=== PATIENT | female | born 1955 | race Caucasian/White ===

== ENCOUNTER 2020-01-26 19:04 | Observation (INO) | payer MEDICARE ==
[~2020-01-26] VITALS: Ht 167.6 cm; Wt 70.3 kg
[~2020-01-26 19:04] MED LIST: HYDR-4068 PO; PARO40TA PO
[2020-01-26 20:02] LABS: APPEARANCE,URINE CLOUDY (CLEAR); BILIRUBIN,URINE SMALL (NEGATIVE); COLOR,URINE YELLOW (YELLOW); GLUCOSE, URINE (UA) NEGATIVE (NEGATIVE); KETONES,URINE NEGATIVE (NEGATIVE); LEUKOCYTE ESTERASE ,URINE NEGATIVE (NEGATIVE); NITRATE,URINE NEGATIVE (NEGATIVE); OCCULT BLOOD,URINE NEGATIVE (NEGATIVE); PROTEIN,URINE NEGATIVE (NEGATIVE)
[2020-01-26 20:11] LABS: BASOPHILS % (AUTO) 0.2 % (0.0-5.0); EOSINOPHILS % (AUTO) 0.5 % (0.0-8.0); LYMPHOCYTES % (AUTO) 13.5 % (21.0-51.0); MEAN CORPUSCULAR HEMOGLOBIN 30.8 pg (27.0-33.0); MEAN CORPUSCULAR HGB CONC 33.1 g/dL (32.0-36.0); MEAN CORPUSCULAR VOLUME 92.9 fL (79-99); MONOCYTES % (AUTO) 3.8 % (3.0-13.0); NEUTROPHILS % (AUTO) 81.7 % (40.0-77.0); PLATELET COUNT (AUTO) 331 K/uL (130-400); RED BLOOD CELL COUNT(AUTO) 4.52 MIL/uL (4.00-5.50); RED CELL DISTRIBUTION WIDTH 13.2 % (11.0-15.5); WHITE BLOOD COUNT (AUTO) 19.1 K/uL (4.8-10.8)
[2020-01-26 20:30] LABS: CREATININE 1.2 mg/dL (0.5-1.5); POTASSIUM 4.8 mmol/L (3.5-5.1)
[2020-01-26 20:38] LABS: BILIRUBIN,TOTAL 0.3 mg/dL (0.2-1.0); TOTAL PROTEIN, SERUM 8.4 g/dL (6.0-8.3)
[2020-01-26 21:00] LABS: AMORPHOUS SEDIMENT,UR Moderate /LPF (None Seen); RBC,URINE 0-1 /HPF (0-1); SQUAMOUS EPITHELIAL CELL,UR Rare /HPF (0-2); WBC,URINE 0-1 /HPF (0-1)
[2020-01-26 21:01] LABS: BACTERIA,URINE Few /HPF (None Seen)
[2020-01-26] MEDS ORDERED: LEVOFLOXACIN 500 MG TABLET ONE (21:14)
[2020-01-26] MEDS ORDERED: METRONIDAZOLE 500MG/100ML BAG 100 ML ONE (21:15)
[2020-01-26] MEDS ORDERED: KETOROLAC TROMETHAMINE 15MG/ML ONE (21:23)
[2020-01-26] MEDS: SODIUM CHLORIDE 0.9% 1000ML 1,000 ML IV SCH (22:30)
[2020-01-27 01:57] VITALS: BP 117/69
[2020-01-27 05:22] LABS: HEMATOCRIT 36.7 % (36-48); MEAN CORPUSCULAR HEMOGLOBIN 30.6 pg (27.0-33.0); MEAN CORPUSCULAR HGB CONC 32.7 g/dL (32.0-36.0); MEAN CORPUSCULAR VOLUME 93.6 fL (79-99); RED BLOOD CELL COUNT(AUTO) 3.92 MIL/uL (4.00-5.50); RED CELL DISTRIBUTION WIDTH 13.3 % (11.0-15.5); WHITE BLOOD COUNT (AUTO) 14.1 K/uL (4.8-10.8)
[2020-01-27 05:47] LABS: CREATININE 1.5 mg/dL (0.5-1.5); POTASSIUM 4.4 mmol/L (3.5-5.1)
[2020-01-27] MEDS: METRONIDAZOLE 500MG/100ML BAG 100 ML IVPB SCH ×3 (05:59→22:11)
[2020-01-27 08:00] VITALS: BP 105/63
[2020-01-27] MEDS: SODIUM CHLORIDE 0.9% 1000ML 1,000 ML IV SCH (08:30)
[2020-01-27] MEDS ORDERED: ONDANSETRON HCL 4 MG/2 ML VIAL IVP PRN (08:30)
[2020-01-27] MEDS: MORPHINE SULFATE 2 MG/ML 1ML SYG IVP PRN ×3 (09:57→20:15)
[2020-01-27] MEDS: FAMOTIDINE 20MG TAB 20 MG TAB PO SCH (09:57)
[2020-01-27 11:57] VITALS: BP 120/75
[2020-01-27 16:00] VITALS: BP 115/70
[2020-01-27 20:00] VITALS: BP 109/64
[2020-01-27] MEDS ORDERED: ACETAMINOPHEN 325 MG TAB ONE (22:10)
[2020-01-28] VITALS: BP 118/59
[2020-01-28 04:00] VITALS: BP 147/77
[2020-01-28] MEDS: SODIUM CHLORIDE 0.9% 1000ML 1,000 ML IV SCH (05:39)
[2020-01-28] MEDS: METRONIDAZOLE 500MG/100ML BAG 100 ML IVPB SCH ×2 (05:39→15:32)
[2020-01-28 08:00] VITALS: BP 131/76
[2020-01-28] MEDS: FAMOTIDINE 20MG TAB 20 MG TAB PO SCH (10:38)
[2020-01-28] MEDS: ACETAMINOPHEN 325 MG TAB PO PRN ×2 (10:41→13:16)
[2020-01-28 12:00] VITALS: BP 125/73
--- NOTE | 2020-01-28 14:38 | NUR ---
MET W PATIENT FOR DC PLANNING. PATIENT STATES RETIRED, INDEPENDENT AND ACTIVE, NO DME, NO HH, NO PROVIDER, LIVES W [facility] WHO WILL PROVIDE TRANSPORT, STATES FOLLOWS W DR. ELMORE, LAST CLINIC VISIT ABOUT 2 MONTHS AGO. DCP IS HOME, NO DC NEEDS ANTICIPATED Addendum: 01/28/20 at 1440 by LAILA FAIRBANKS RN CM Amended: Links added.
[2020-01-28 16:00] VITALS: BP 135/77
--- NOTE | 2020-01-28 19:21 | NUR ---
D/C PT LEFT VIA WHEELCHAIR IN PVT CAR, [facility] AND [facility] CALL TO [facility] IN [facility]. PT V.S STABLE NO COMPLICATIONS, TOLERATED DINNER. PT WILL F/U WITH PCP 2-3 DAYS. NO ABDOMINAL PAIN UPON D.C.
[2020-01-28] MEDS ORDERED: LEVOFLOXACIN 750 MG/D5W 150 ML 150 ML IV SCH (21:00)
== END 2020-01-28 19:30 | disposition home or self-care (01) ==
LOC: EDH 19:04 → EDHIP 21:18 → 3AH 01-27 01:57
PROVIDERS: ADMIT Internal Medicine; ATTEND Internal Medicine
DX: K57.32 Diverticulitis of large intestine without perforation or abscess without bleeding (principal); I10 Essential (primary) hypertension; G43.909 Migraine, unspecified, not intractable, without status migrainosus; Z90.710 Acquired absence of both cervix and uterus; Z88.8 Allergy status to other drugs, medicaments and biological substances
CPT/HCPCS: G0378 ×78; 36415; 71045; 74176; 80048; 80053; 81001; 82150; 82550; 83690; 84484; 85025; 85027; 87040; 93005; 96361; 96365; 96366; 96375; 96376; J1885; J1956; J3490; J7030

== ENCOUNTER 2020-08-12 05:40 | Emergency (ER) | payer MEDICARE ==
[2020-08-12 06:17] LABS: APPEARANCE,URINE CLEAR (CLEAR); BILIRUBIN,URINE NEGATIVE (NEGATIVE); COLOR,URINE YELLOW (YELLOW); GLUCOSE, URINE (UA) NEGATIVE (NEGATIVE); KETONES,URINE 5 mg/dL (NEGATIVE); LEUKOCYTE ESTERASE ,URINE NEGATIVE (NEGATIVE); NITRATE,URINE NEGATIVE (NEGATIVE); OCCULT BLOOD,URINE NEGATIVE (NEGATIVE); PH,URINE 5.5 (5.0-8.0); PROTEIN,URINE NEGATIVE (NEGATIVE); UROBILINOGEN,URINE 0.2 mg/dL (0.2-1.0)
[2020-08-12 06:34] LABS: BASOPHILS % (AUTO) 0.3 % (0.0-5.0); EOSINOPHILS % (AUTO) 1.9 % (0.0-8.0); HEMATOCRIT 43.9 % (36-48); LYMPHOCYTES % (AUTO) 27.3 % (21.0-51.0); MEAN CORPUSCULAR HEMOGLOBIN 31.3 pg (27.0-33.0); MEAN CORPUSCULAR HGB CONC 33.5 g/dL (32.0-36.0); MEAN CORPUSCULAR VOLUME 93.4 fL (79-99); MONOCYTES % (AUTO) 6.3 % (3.0-13.0); NEUTROPHILS % (AUTO) 63.9 % (40.0-77.0); PLATELET COUNT (AUTO) 358 K/uL (130-400); RED CELL DISTRIBUTION WIDTH 13.5 % (11.0-15.5); WHITE BLOOD COUNT (AUTO) 15.6 K/uL (4.8-10.8)
[2020-08-12 07:20] LABS: BACTERIA,URINE Rare /HPF (None Seen); MUCUS,URINE Few LPF (None Seen); RBC,URINE 0-1 /HPF (0-1); SQUAMOUS EPITHELIAL CELL,UR Rare /HPF (0-2)
[2020-08-12 07:21] LABS: CALCIUM OXALATE CRYSTALS,UR Moderate /LPF (None Seen)
[2020-08-12 07:29] LABS: ALBUMIN 3.9 g/dL (3.5-5.0); BILIRUBIN,TOTAL 0.2 mg/dL (0.2-1.0); CREATININE 1.3 mg/dL (0.5-1.5); POTASSIUM 4.7 mmol/L (3.5-5.1); TOTAL PROTEIN, SERUM 7.7 g/dL (6.0-8.3)
[2020-08-12] MEDS ORDERED: SODIUM CHLORIDE 0.9% 1000ML 1,000 ML IV ONE ×2 (08:13)
[2020-08-12] MEDS ORDERED: SODIUM CHLORIDE 0.9% 500ML 500 ML IV ONE (08:13)
[2020-08-12] MEDS ORDERED: FAMOTIDINE/PF 20 MG/2 ML VIAL IV ONE (08:17)
[2020-08-12] MEDS ORDERED: SUCRALFATE 1 GM TABLET ONE (08:17)
[2020-08-12] MEDS ORDERED: ONDANSETRON HCL 4 MG/2 ML VIAL ONE (08:17)
[2020-08-12] MEDS ORDERED: IOHEXOL-350 75 ML VIAL IV ONE (09:37)
== END 2020-08-12 10:55 | disposition home or self-care (01) ==
LOC: EDH 05:40
DX: R10.13 Epigastric pain (principal); D72.829 Elevated white blood cell count, unspecified; R10.11 Right upper quadrant pain; I10 Essential (primary) hypertension; G43.909 Migraine, unspecified, not intractable, without status migrainosus; Z88.8 Allergy status to other drugs, medicaments and biological substances
CPT/HCPCS: 36415; 74177; 76705; 80053; 81001; 82150; 83690; 84484; 85025; 93005; 96374; 96375; 99285; J2405; J3490; J7040; Q9967; J7030

== ENCOUNTER 2021-01-16 21:55 | Emergency (ER) | payer MEDICARE ==
[~2021-01-16] VITALS: Ht 167.6 cm; Wt 71.2 kg
[2021-01-16] MEDS ORDERED: SODIUM CHLORIDE 0.9% 1000ML 1,000 ML IV SCH (22:30)
[2021-01-16] MEDS ORDERED: ONDANSETRON HCL 4 MG/2 ML VIAL IVP ONE (22:30)
[2021-01-16 22:40] LABS: APPEARANCE,URINE Clear (CLEAR); BILIRUBIN,URINE Negative (NEGATIVE); COLOR,URINE Yellow (YELLOW); GLUCOSE, URINE (UA) Negative (NEGATIVE); KETONES,URINE Negative (NEGATIVE); LEUKOCYTE ESTERASE ,URINE Trace (NEGATIVE); NITRATE,URINE Negative (NEGATIVE); OCCULT BLOOD,URINE Small (NEGATIVE); PROTEIN,URINE Negative (NEGATIVE); UROBILINOGEN,URINE 0.2 mg/dL (0.2-1.0)
[2021-01-16 22:50] LABS: BACTERIA,URINE Rare /HPF (None Seen); RBC,URINE 0-1 /HPF (0-1); SQUAMOUS EPITHELIAL CELL,UR 0-2 /HPF (0-2)
[2021-01-16 22:51] LABS: BASOPHILS % (AUTO) 0.4 % (0.0-5.0); EOSINOPHILS % (AUTO) 1.9 % (0.0-8.0); HEMATOCRIT 37.3 % (36-48); LYMPHOCYTES % (AUTO) 16.7 % (21.0-51.0); MEAN CORPUSCULAR HEMOGLOBIN 30.9 pg (27.0-33.0); MEAN CORPUSCULAR HGB CONC 33.5 g/dL (32.0-36.0); MEAN CORPUSCULAR VOLUME 92.3 fL (79-99); MONOCYTES % (AUTO) 6.8 % (3.0-13.0); NEUTROPHILS % (AUTO) 73.8 % (40.0-77.0); PLATELET COUNT (AUTO) 283 K/uL (130-400); RED BLOOD CELL COUNT(AUTO) 4.04 MIL/uL (4.00-5.50); RED CELL DISTRIBUTION WIDTH 13.6 % (11.0-15.5); WHITE BLOOD COUNT (AUTO) 13.9 K/uL (4.8-10.8)
[2021-01-16 23:00] VITALS: BP 139/75
[2021-01-16 23:03] LABS: CREATININE 1.2 mg/dL (0.5-1.5); POTASSIUM 4.5 mmol/L (3.5-5.1)
[2021-01-16 23:13] LABS: ALBUMIN 3.6 g/dL (3.5-5.0); BILIRUBIN,TOTAL 0.4 mg/dL (0.2-1.0); TOTAL PROTEIN, SERUM 7.4 g/dL (6.0-8.3)
[2021-01-16] MEDS ORDERED: SODIUM CHLORIDE 0.9% 1000ML 1,000 ML IV ONE (23:45)
[2021-01-16] MEDS ORDERED: ONDANSETRON HCL 4 MG/2 ML VIAL ONE (23:45)
[2021-01-17] MEDS ORDERED: ONDA4TAB10 PO (00:43)
[2021-01-17] MEDS ORDERED: DICY20TA2 PO (00:43)
[2021-01-17 00:45] VITALS: BP 141/90
== END 2021-01-17 00:53 | disposition home or self-care (01) ==
LOC: EDH 21:55
DX: E86.0 Dehydration (principal); R10.84 Generalized abdominal pain; R11.0 Nausea; R50.9 Fever, unspecified; Z88.8 Allergy status to other drugs, medicaments and biological substances; Z79.899 Other long term (current) drug therapy
CPT/HCPCS: 36415; 74176; 80053; 81001; 83690; 84484; 85025; 93005; 96374; 99285; J2405; J7030

== ENCOUNTER 2023-01-06 16:15 | Emergency (ER) | payer MEDICARE ==
[~2023-01-06] VITALS: Ht 167.6 cm; Wt 70.3 kg
[~2023-01-06 16:15] MED LIST changes: +DICY20TA2 PO; +ONDA4TAB10 PO; +PARO-160 PO; -PARO40TA PO
[2023-01-06 16:50] VITALS: BP 165/92
[2023-01-06] MEDS ORDERED: METOCLOPRAMIDE 10 MG TABLET PO ONE (17:30)
[2023-01-06] MEDS ORDERED: HYDROCODONE/ACETAMINOPHEN 7.5/325 MG TAB PO ONE (17:30)
[2023-01-06] MEDS ORDERED: TRAM50TA4 PO (18:04)
[2023-01-06] MEDS ORDERED: METO10TA41 PO (18:04)
== END 2023-01-06 19:06 | disposition home or self-care (01) ==
LOC: EDH 16:15
DX: G43.909 Migraine, unspecified, not intractable, without status migrainosus (principal); I10 Essential (primary) hypertension; Z79.899 Other long term (current) drug therapy

== ENCOUNTER 2023-07-27 17:59 | Emergency (ER) | payer MEDICARE ==
[~2023-07-27] VITALS: Ht 165.1 cm; Wt 68.9 kg
[~2023-07-27 17:59] MED LIST changes: +METO10TA41 PO; +TRAM50TA4 PO
[2023-07-27 18:23] VITALS: BP 162/105; PULSE 83; RESP 16; O2SAT 98
== END 2023-07-27 18:56 | disposition left against medical advice (07) ==
LOC: EDH 17:59
DX: R51.9 Headache, unspecified (principal); Z53.21 Procedure and treatment not carried out due to patient leaving prior to being seen by health care provider

== ENCOUNTER 2023-07-31 13:16 | Emergency (ER) | payer MEDICARE ==
[~2023-07-31] VITALS: Ht 165.1 cm; Wt 71.7 kg
[2023-07-31 13:54] LABS: BASOPHILS # (AUTO) 0.06 K/uL (0.00-0.20); BASOPHILS % (AUTO) 0.6 % (0.0-5.0); EOSINOPHILS % (AUTO) 3.2 % (0.0-8.0); HEMATOCRIT 36.7 % (36-48); IMMATURE GRANULOCYTE ABSOLUTE 0.02 K/uL (0-1); LYMPHOCYTES # (AUTO) 3.6 K/uL (1.0-4.8); LYMPHOCYTES % (AUTO) 37.8 % (21.0-51.0); MEAN CORPUSCULAR HEMOGLOBIN 31.1 pg (27.0-33.0); MEAN CORPUSCULAR HGB CONC 34.1 g/dL (32.0-36.0); MEAN CORPUSCULAR VOLUME 91.3 fL (79-99); MONOCYTES # (AUTO) 0.6 K/uL (0.1-1.0); MONOCYTES % (AUTO) 6.5 % (3.0-13.0); NEUTROPHILS # (AUTO) 4.8 K/uL (1.8-7.7); NEUTROPHILS % (AUTO) 51.7 % (40.0-77.0); PLATELET COUNT (AUTO) 346 K/uL (130-400); RED BLOOD CELL COUNT(AUTO) 4.02 MIL/uL (4.00-5.50); RED CELL DISTRIBUTION WIDTH 13.6 % (11.0-15.5); WHITE BLOOD COUNT (AUTO) 9.4 K/uL (4.8-10.8)
[2023-07-31] MEDS ORDERED: METOCLOPRAMIDE 10 MG/2 ML VIAL IVP ONE (14:00)
[2023-07-31] MEDS ORDERED: 0.9%NACL 1000ML 1,000 ML IV ONE (14:00)
[2023-07-31] MEDS ORDERED: DEXAMETHASONE SOD PHOSPHATE 4 MG/ML 1ML VIAL IV ONE (14:00)
[2023-07-31] MEDS ORDERED: KETOROLAC 30MG VIAL (30MG/ML) IVP ONE (14:00)
[2023-07-31] MEDS ORDERED: ONDANSETRON 4MG INJ IVP ONE (14:00)
[2023-07-31 14:05] LABS: CREATININE 0.8 mg/dL (0.5-1.5); POTASSIUM 4.4 mmol/L (3.5-5.1)
[2023-07-31 14:10] LABS: ALBUMIN 3.8 g/dL (3.5-5.0); BILIRUBIN,TOTAL 0.2 mg/dL (0.2-1.0); TOTAL PROTEIN, SERUM 7.9 g/dL (6.0-8.3)
[2023-07-31] MEDS ORDERED: BUTA-256 PO (14:50)
[2023-07-31] MEDS ORDERED: LORAZEPAM 2 MG/ML 1 ML VIAL IVP ONE (15:00)
[2023-07-31 15:04] VITALS: BP 176/77; PULSE 74; RESP 18; O2SAT 96
== END 2023-07-31 15:05 | disposition home or self-care (01) ==
LOC: EDH 13:16
DX: G44.209 Tension-type headache, unspecified, not intractable (principal); F41.0 Panic disorder [episodic paroxysmal anxiety]; I10 Essential (primary) hypertension; Z79.899 Other long term (current) drug therapy; Z90.49 Acquired absence of other specified parts of digestive tract
CPT/HCPCS: 99284; 96374; 96375; 80053; 85025; 36415; J1100; J7030; J2405; J2060; J1885; J2765

== ENCOUNTER 2023-08-20 16:38 | Emergency (ER) | payer MEDICARE ==
[~2023-08-20] VITALS: Ht 165.1 cm; Wt 68.0 kg
[~2023-08-20 16:38] MED LIST changes: +BUTA-256 PO
[2023-08-20 16:46] VITALS: BP 130/88; PULSE 93; RESP 18; O2SAT 98
== END 2023-08-20 19:04 | disposition left against medical advice (07) ==
LOC: EDH 16:38
DX: T17.208A Unspecified foreign body in pharynx causing other injury, initial encounter (principal); E78.00 Pure hypercholesterolemia, unspecified; I10 Essential (primary) hypertension; Z79.899 Other long term (current) drug therapy; Z90.710 Acquired absence of both cervix and uterus
CPT/HCPCS: 76536

== ENCOUNTER 2024-06-02 10:22 | Emergency (ER) | payer MEDICARE ==
[~2024-06-02] VITALS: Ht 165.1 cm; Wt 74.8 kg
[~2024-06-02 10:22] MED LIST changes: +ONDA-243 PO; -ONDA4TAB10 PO
[2024-06-02 10:25] VITALS: TEMP 98.4
[2024-06-02] MEDS: ketOROlac 60 MG VIAL (30MG/ML) IM ONE (11:38)
[2024-06-02] MEDS: HYDROcodone/acetaMINOPHEN 10/325 MG TAB PO ONE (11:38)
[2024-06-02] MEDS ORDERED: DICL20GE TP (12:23)
[2024-06-02] MEDS ORDERED: LIDO1ADH71 TP (12:23)
[2024-06-02] MEDS ORDERED: ACET-2079 PO (12:23)
[2024-06-02] MEDS ORDERED: MELO-108 PO (12:23)
[2024-06-02] MEDS: morPHINE 4 MG SYG IM ONE (14:03)
[2024-06-02 14:27] VITALS: BP 151/94; PULSE 70; RESP 19; O2SAT 96
== END 2024-06-02 14:32 | disposition home or self-care (01) ==
LOC: EDH 10:22
DX: S13.8XXA Sprain of joints and ligaments of other parts of neck, initial encounter (principal); Z79.899 Other long term (current) drug therapy; Z90.710 Acquired absence of both cervix and uterus; Z88.8 Allergy status to other drugs, medicaments and biological substances; Z98.890 Other specified postprocedural states; X58.XXXA Exposure to other specified factors, initial encounter; Y93.89 Activity, other specified; Y92.89 Other specified places as the place of occurrence of the external cause; Y99.8 Other external cause status
CPT/HCPCS: 99285; 72125; 96372 ×2; J2270; J1885

== ENCOUNTER 2024-06-03 20:08 | Emergency (ER) | payer MEDICARE ==
[~2024-06-03] VITALS: Ht 165.1 cm; Wt 70.3 kg
[~2024-06-03 20:08] MED LIST changes: +ACET-2079 PO; +DICL20GE TP; +LIDO1ADH71 TP; +MELO-108 PO
[2024-06-03 20:14] VITALS: BP 153/86; PULSE 88; RESP 20; TEMP 98.8; O2SAT 95
[2024-06-03] MEDS: Solu-medROL 125MG VIAL IM ONE (20:52)
[2024-06-03] MEDS: LIDOCAINE 5% TOPICAL PATCH TP ONE (20:52)
[2024-06-03] MEDS: ketOROlac 30MG VIAL (30MG/ML) IM ONE (20:53)
== END 2024-06-03 21:26 | disposition left against medical advice (07) ==
LOC: EDH 20:08
DX: M54.2 Cervicalgia (principal); Z79.899 Other long term (current) drug therapy; Z90.710 Acquired absence of both cervix and uterus
CPT/HCPCS: 99284; 96372 ×2; J2919; J1885

== ENCOUNTER → 2024-06-27 | Outpatient (CLI) | payer MEDICARE ==
[~2024-06-27] MED LIST changes: +GADOTERATE MEGLUMINE 10 MMOL/20 ML VIAL IV ONE
--- NOTE | 2024-06-27 14:35 | HMCIMG ---
MR SPINAL CANAL, CERV W/WO CON HISTORY: Unspecified inflammatory disease spondylopathy COMPARISON: None TECHNIQUE: MRI of the cervical spine was performed utilizing multiple pulse sequences in axial and sagittal plane. Patient was not given contrast through intravenous route. FINDINGS: No abnormal signal intensity is seen of the visualized bony structure. No loss of vertebral height is seen. There is straightening of normal lordotic cervical curvature which may be related to muscle spasm or positioning. Degenerative disc signals are present at all cervical spine levels. Cerebellar tonsils are in normal position. Given 20 cc of Clariscan At the C3-4 level, there is spondylotic disc causing anterior CSF space effacement with bilateral lateral recess stenosis and bilateral neural foraminal stenosis. The central canal measures approximately 6.1 mm in its anterior posterior dimension. At the C4-5 level, there is spondylotic disc causing anterior CSF space effacement with bilateral lateral recess stenosis and bilateral neural foraminal stenosis. The central canal measures approximately 9.0 mm in its anterior posterior dimension. At the C5-6 level, there is spondylotic disc causing anterior CSF space effacement with bilateral lateral recess stenosis and bilateral neural foraminal stenosis. The central canal measures approximately 8.3 mm in its anterior posterior dimension. At the C6-7 level, there is spondylotic disc causing anterior CSF space effacement with bilateral lateral recess stenosis and bilateral neural foraminal stenosis. The central canal measures approximately 7.7 mm in its anterior posterior dimension. IMPRESSION: 1. DJD with cervical spine spondylosis as described above.
== END | disposition home or self-care (01) ==
LOC: RAH 12:37
PROVIDERS: ATTEND Internal Medicine
DX: S13.9XXA Sprain of joints and ligaments of unspecified parts of neck, initial encounter (principal); M47.812 Spondylosis without myelopathy or radiculopathy, cervical region; M48.02 Spinal stenosis, cervical region; M46.92 Unspecified inflammatory spondylopathy, cervical region; X58.XXXA Exposure to other specified factors, initial encounter; Y93.89 Activity, other specified; Y92.89 Other specified places as the place of occurrence of the external cause; Y99.8 Other external cause status; S13.4XXA Sprain of ligaments of cervical spine, initial encounter
CPT/HCPCS: 72156; A9575